=== PATIENT | female | born 1975 | race Caucasian/White ===

== ENCOUNTER 2017-05-18 11:57 | Emergency (ER) | payer MEDICARE, MEDICAID ==
[~2017-05-18] VITALS: Ht 154.9 cm; Wt 50.0 kg
[~2017-05-18 11:57] MED LIST: ALPR1TAB10 PO; ARIP30TA4 PO; BUTA1CAP57 PO; OXYC-307 PO; VENL150C PO
[2017-05-18] MEDS ORDERED: OXYcodone/APAP 5/325MG TABLET PO ONE (13:00)
[2017-05-18] MEDS ORDERED: OXYcodone/APAP 5/325MG TABLET ONE (13:29)
[2017-05-18 15:54] VITALS: BP 111/73
== END 2017-05-18 15:56 | disposition home or self-care (01) ==
LOC: ED 12:46
DX: S02.2XXB Fracture of nasal bones, initial encounter for open fracture (principal); J44.9 Chronic obstructive pulmonary disease, unspecified; W19.XXXA Unspecified fall, initial encounter; Y93.89 Activity, other specified; Y99.8 Other external cause status; Y92.099 Unspecified place in other non-institutional residence as the place of occurrence of the external cause
CPT/HCPCS: 70450; 70486; 99284